=== PATIENT | female | born 1930 | race Caucasian/White ===

== ENCOUNTER 2016-04-21 10:27 | Observation (INO) | payer OTHER ==
[~2016-04-21] VITALS: Ht 162.6 cm; Wt 56.9 kg
[~2016-04-21 10:27] MED LIST: Aricept PO; Dulcolax PO; Dulcolax PR; Duragesic TD; Hydrodiuril,Oretic,E PO; LEXAPRO20 MG PO; LIDODERM 5% P1 PATCH TD; LUNESTA1 MG PO; Lexapro PO; Lipitor PO; Lovenox SC; Maalox, Mylanta PO; Micro-K,K-Tab,K-Dur, PO; Milk Of Magnesia,MOM PO; NAMENDA10 MG PO; NITROSTAT,NITR0.4 M1 SL; Namenda PO; Nitrostat,NitroQuick SL; Protonix PO; QUESTRAN4 GM/PACKE PO; Senokot,Sennagen PO; TOPROL XL100 MG PO; Theragran PO; Toprol XL PO; Tums,OsCal PO; Tylenol Regular Stre PO; Tylenol/Codeine #3 PO; Vitamin D PO; ZOFRAN4 MG PO; Zocor PO
[2016-04-21 11:36] LABS: HEMATOCRIT 35.4 % (36.0-46.0); MCH 26.7 PG (29.0-34.0); MCHC 30.8 G/DL (30.0-36.0); MCV 86.8 FL (83-99); MEAN PLAT.VOLUME 10.4 uM^3 (9.5-12.4); PLATELET COUNT 308 K/uL (156-360); RBC DIS.WIDTH-CV 15.6 % (11.8-14.6); RBC DIS.WIDTH-SD 48.7 % (39-53); RED BLOOD COUNT 4.08 M/uL (3.80-5.20); WHITE BLOOD COUNT 8.1 K/uL (4.1-10.2)
[2016-04-21 11:43] LABS: CHLORIDE 107 mEq/L (99-109); POTASSIUM 3.8 mEq/L (3.7-5.4); SODIUM 143 mEq/L (136-147)
[2016-04-21 11:45] LABS: GLUCOSE 138 mg/dL (70-99)
[2016-04-21 11:46] LABS: ANION GAP 10 MEQ/L (2-14)
[2016-04-21 11:49] LABS: GFR ESTIMATE (CALCULATED) > 59 mL/min/
[2016-04-21 11:50] LABS: UREA NITROGEN (BUN) 19 mg/dL (9-23)
[2016-04-21 11:55] LABS: TROP-I INTERPRETATION NEGATIVE; TROPONIN-I < 0.01 ng/mL (0.0-0.30)
[2016-04-21] MEDS ORDERED: ATORVASTATIN CA20 MG PO (14:56)
[2016-04-21] MEDS ORDERED: METOPROLOL SUCC50 MG PO (14:56)
[2016-04-21] MEDS ORDERED: MEMANTINE HCL10 MG PO (14:56)
[2016-04-21] MEDS ORDERED: DONEPEZIL HCL10 MG PO (14:56)
[2016-04-21] MEDS ORDERED: OMEPRAZOLE40 M1 PO (14:57)
[2016-04-21] MEDS ORDERED: VENLAFAXINE HCL75 M3 PO (14:57)
[2016-04-21] MEDS ORDERED: VITAMIN D-3 401 EACH PO (14:57)
[2016-04-21] MEDS ORDERED: FENTANYL1 EAC5 TD (14:57)
[2016-04-21] MEDS ORDERED: ALEVE PM CAPLE1 EACH PO (14:58)
[2016-04-21] MEDS ORDERED: ICY HOT CREAM35.4 G1 TP (16:24)
[2016-04-21] MEDS ORDERED: VEGETABLE LAXA8.6 MG PO (16:25)
[2016-04-21] MEDS ORDERED: THERAGRAN1 TABLET PO (16:25)
[2016-04-21] MEDS ORDERED: TUMS500 MG PO (16:27)
[2016-04-21 17:16] VITALS: BP 151/65
[2016-04-21 20:30] VITALS: BP 128/62
[2016-04-21 23:51] LABS: ADD MIUA? YES; BILIRUBIN SMALL; BLOOD NEGATIVE; COLOR DK YELLOW ((YELLOW)); GLUCOSE (STRIP) NEGATIVE; KETONES TRACE; LEUKOCYTES TRACE; NITRITE NEGATIVE; PROTEIN (STRIP) 30
[2016-04-22 00:02] LABS: TROP-I INTERPRETATION NEGATIVE; TROPONIN-I < 0.01 ng/mL (0.0-0.30)
[2016-04-22 00:19] LABS: AMORPHOUS PHOSPHATE CRYSTALS 3+; BACTERIA 2+; CASTS PRESENT /LPF; CRYSTALS PRESENT; EPITHELIAL CELLS RARE; HYALINE CASTS 0-5 /LPF; MUCUS 1+; RED BLOOD CELLS NONE SEEN /HPF (0-5); UCUL ADDED? NO; WHITE BLOOD CELLS 0-5 /HPF (0-5)
[2016-04-22 00:24] VITALS: BP 134/63
[2016-04-22 04:41] LABS: HEMATOCRIT 27.6 % (36.0-46.0); MCH 26.8 PG (29.0-34.0); MCHC 30.8 G/DL (30.0-36.0); MCV 87.1 FL (83-99); MEAN PLAT.VOLUME 10.1 uM^3 (9.5-12.4); PLATELET COUNT 230 K/uL (156-360); RBC DIS.WIDTH-CV 15.7 % (11.8-14.6); RBC DIS.WIDTH-SD 48.2 % (39-53); WHITE BLOOD COUNT 5.6 K/uL (4.1-10.2)
[2016-04-22 04:42] LABS: RED BLOOD COUNT 3.17 M/uL (3.80-5.20)
[2016-04-22 04:52] VITALS: BP 174/77
[2016-04-22 04:52] LABS: CHLORIDE 110 mEq/L (99-109); POTASSIUM 3.9 mEq/L (3.7-5.4); SODIUM 143 mEq/L (136-147)
[2016-04-22 04:54] LABS: GLUCOSE 118 mg/dL (70-99)
[2016-04-22 04:55] LABS: ANION GAP 8 MEQ/L (2-14)
[2016-04-22 04:58] LABS: GFR ESTIMATE (CALCULATED) > 59 mL/min/
[2016-04-22 04:59] LABS: UREA NITROGEN (BUN) 22 mg/dL (9-23)
[2016-04-22 05:04] LABS: TROP-I INTERPRETATION NEGATIVE; TROPONIN-I < 0.01 ng/mL (0.0-0.30)
[2016-04-22 08:28] VITALS: BP 128/68
[2016-04-22 10:01] LABS: HEMATOCRIT 29.1 % (36.0-46.0); MCH 26.6 PG (29.0-34.0); MCHC 30.6 G/DL (30.0-36.0); MCV 87.1 FL (83-99); MEAN PLAT.VOLUME 10.9 uM^3 (9.5-12.4); PLATELET COUNT 196 K/uL (156-360); RBC DIS.WIDTH-SD 50.8 % (39-53); RED BLOOD COUNT 3.34 M/uL (3.80-5.20); WHITE BLOOD COUNT 5.7 K/uL (4.1-10.2)
[2016-04-22] MEDS ORDERED: CARDIZEM CD120 MG PO (15:03)
[2016-04-24 08:34] LABS: INTERNAL CONTROL VALID? YES
== END 2016-04-22 16:07 | disposition home or self-care (01) ==
LOC: EME 10:27 → 5WEST 13:43 → EDOF 13:43 → 5WEST 16:56
PROVIDERS: Hospitalist; Internal Medicine; Physician Assistant Medical
DX: I47.1 Supraventricular tachycardia (principal); D64.9 Anemia, unspecified; G30.9 Alzheimer's disease, unspecified; F02.80 Dementia in other diseases classified elsewhere, unspecified severity, without behavioral disturbance, psychotic disturbance, mood disturbance, and anxiety; I10 Essential (primary) hypertension; E78.5 Hyperlipidemia, unspecified; R42 Dizziness and giddiness; K22.4 Dyskinesia of esophagus; F31.9 Bipolar disorder, unspecified; G40.909 Epilepsy, unspecified, not intractable, without status epilepticus; Z88.5 Allergy status to narcotic agent; Z82.49 Family history of ischemic heart disease and other diseases of the circulatory system
CPT/HCPCS: 70450; 71020; 80048; 81003; 82272; 84484; 85027; 93005; 99281; 99285; G0378; J1650

== ENCOUNTER 2016-04-29 10:29 | Observation (INO) | payer OTHER ==
[~2016-04-29] VITALS: Ht 162.6 cm; Wt 58.8 kg
[~2016-04-29 10:29] MED LIST changes: +ALEVE PM CAPLE1 EACH PO; +ATORVASTATIN CA20 MG PO; +CARDIZEM CD120 MG PO; +DONEPEZIL HCL10 MG PO; +FENTANYL1 EAC5 TD; +ICY HOT CREAM35.4 G1 TP; +MEMANTINE HCL10 MG PO; +METOPROLOL SUCC50 MG PO; +OMEPRAZOLE40 M1 PO; +THERAGRAN1 TABLET PO; +TUMS500 MG PO; +VEGETABLE LAXA8.6 MG PO; +VENLAFAXINE HCL75 M3 PO; +VITAMIN D-3 401 EACH PO
[2016-04-29 11:21] LABS: CHLORIDE 104 mEq/L (99-109); SODIUM 138 mEq/L (136-147)
[2016-04-29 11:22] LABS: GLUCOSE 140 mg/dL (70-99)
[2016-04-29 11:24] LABS: ANION GAP 11 MEQ/L (2-14)
[2016-04-29 11:26] LABS: GFR ESTIMATE (CALCULATED) > 59 mL/min/
[2016-04-29 11:27] LABS: UREA NITROGEN (BUN) 16 mg/dL (9-23)
[2016-04-29 11:37] LABS: TROP-I INTERPRETATION NEGATIVE; TROPONIN-I 0.01 ng/mL (0.0-0.30)
[2016-04-29 12:15] LABS: POTASSIUM 4.1 mEq/L (3.7-5.4)
[2016-04-29 13:10] LABS: HEMATOCRIT 34.2 % (36.0-46.0); MCH 26.3 PG (29.0-34.0); MCHC 30.4 G/DL (30.0-36.0); MCV 86.6 FL (83-99); MEAN PLAT.VOLUME 12.3 uM^3 (9.5-12.4); PLATELET COUNT 230 K/uL (156-360); RBC DIS.WIDTH-SD 47.8 % (39-53); RED BLOOD COUNT 3.95 M/uL (3.80-5.20); WHITE BLOOD COUNT 7.4 K/uL (4.1-10.2)
[2016-04-29] MEDS ORDERED: CARDIZEM CD120 MG PO (13:52)
[2016-04-29] MEDS ORDERED: BENADRYL25 MG PO (13:55)
[2016-04-29 15:40] VITALS: BP 133/63
[2016-04-29 15:44] LABS: MAGNESIUM 4.4 mg/dl (1.3-2.7)
[2016-04-29 17:13] VITALS: BP 139/65
[2016-04-29 19:26] VITALS: BP 158/82
[2016-04-30 00:04] VITALS: BP 164/84
[2016-04-30 04:09] VITALS: BP 152/74
[2016-04-30 07:23] LABS: IRON 23 MCG/DL (35-150)
[2016-04-30 07:56] VITALS: BP 120/78
[2016-04-30 08:25] LABS: FERRITIN 40 NG/ML (10-291)
[2016-04-30 12:00] VITALS: BP 128/80
[2016-04-30] MEDS ORDERED: CORDARONE200 MG PO (14:05)
== END 2016-04-30 15:37 | disposition home or self-care (01) ==
LOC: EME 10:29 → EDOF 13:24 → 4EAST 13:24 → EDOF 13:24 → 4EAST 15:33
PROVIDERS: Emergency Medicine; Internal Medicine
DX: I47.1 Supraventricular tachycardia (principal); R94.31 Abnormal electrocardiogram [ECG] [EKG]; I10 Essential (primary) hypertension; E78.5 Hyperlipidemia, unspecified; I35.0 Nonrheumatic aortic (valve) stenosis; G30.9 Alzheimer's disease, unspecified; F02.80 Dementia in other diseases classified elsewhere, unspecified severity, without behavioral disturbance, psychotic disturbance, mood disturbance, and anxiety; D64.9 Anemia, unspecified; R94.6 Abnormal results of thyroid function studies; Z82.49 Family history of ischemic heart disease and other diseases of the circulatory system; Z88.5 Allergy status to narcotic agent
CPT/HCPCS: 71010; 80048; 82607; 82728; 82746; 83540; 83735; 84443; 84450; 84460; 84466; 84484; 84999; 85027; 93005; 93306; 99281; 99285; G0378; J1650; J7030

== ENCOUNTER 2016-05-15 12:07 | Inpatient (IN) | payer OTHER ==
[~2016-05-15] VITALS: Ht 162.6 cm; Wt 63.5 kg
[~2016-05-15 12:07] MED LIST changes: +BENADRYL25 MG PO; +CORDARONE200 MG PO
[2016-05-15 13:35] LABS: CHLORIDE 107 mEq/L (99-109); POTASSIUM 3.7 mEq/L (3.7-5.4); SODIUM 142 mEq/L (136-147)
[2016-05-15 13:36] LABS: EOSINOPHIL (%) 0.4 % (0-5); EOSINOPHIL COUNT 0.1 K/uL (0-0.3); HEMATOCRIT 34.4 % (36.0-46.0); IMMATURE GRANULOCYTE (%) 0.2 % (0.0-0.7); IMMATURE GRANULOCYTE COUNT 0.2 K/uL; LYMPHOCYTE COUNT 1.3 K/uL (1.0-2.8); MCH 25.2 PG (29.0-34.0); MCHC 30.2 G/DL (30.0-36.0); MCV 83.5 FL (83-99); MEAN PLAT.VOLUME 10.9 uM^3 (9.5-12.4); MONOCYTE (%) 7.6 % (3-12); NEUTROPHIL (%) 81.3 % (45-76); NEUTROPHIL COUNT 10.6 K/uL (1.8-6.4); PLATELET COUNT 304 K/uL (156-360); RBC DIS.WIDTH-CV 14.9 % (11.8-14.6); RBC DIS.WIDTH-SD 44.2 % (39-53); RED BLOOD COUNT 4.12 M/uL (3.80-5.20)
[2016-05-15 13:37] LABS: GLUCOSE 145 mg/dL (70-99)
[2016-05-15 13:39] LABS: ANION GAP 12 MEQ/L (2-14); INTER. NORMALIZED RATIO 1.2; PROTHROMBIN TIME 12.7 (9.2-11.2); PTT 27.5 (25-32)
[2016-05-15 13:41] LABS: GFR ESTIMATE (CALCULATED) > 59 mL/min/
[2016-05-15 13:42] LABS: UREA NITROGEN (BUN) 21 mg/dL (9-23)
[2016-05-15 13:48] LABS: TROP-I INTERPRETATION NEGATIVE; TROPONIN-I 0.14 ng/mL (0.0-0.30)
[2016-05-15] MEDS ORDERED: DURAGESIC12 MCG TD (18:56)
[2016-05-15] MEDS ORDERED: ZANTAC150 MG PO (18:58)
[2016-05-15] MEDS ORDERED: CLARITIN,ALAVAR10 MG PO (18:59)
[2016-05-15] MEDS ORDERED: MELATIN3 MG PO (18:59)
[2016-05-15 20:32] VITALS: BP 118/64
[2016-05-15 22:36] LABS: INTER. NORMALIZED RATIO 1.3
[2016-05-15 22:37] LABS: PTT 62.7 (25-32)
[2016-05-15 23:26] VITALS: BP 133/72
[2016-05-16 04:04] VITALS: BP 129/68
[2016-05-16 07:42] VITALS: BP 118/61
[2016-05-16 09:30] LABS: HEMATOCRIT 30.3 % (36.0-46.0); MCH 24.7 PG (29.0-34.0); MCHC 29.7 G/DL (30.0-36.0); MEAN PLAT.VOLUME 10.7 uM^3 (9.5-12.4); PLATELET COUNT 288 K/uL (156-360); RBC DIS.WIDTH-CV 15.1 % (11.8-14.6); RBC DIS.WIDTH-SD 45.9 % (39-53); RED BLOOD COUNT 3.65 M/uL (3.80-5.20); WHITE BLOOD COUNT 9.8 K/uL (4.1-10.2)
[2016-05-16 10:17] LABS: ANION GAP 9 MEQ/L (2-14); CHLORIDE 104 MEQ/L (99-109); GFR ESTIMATE (CALCULATED) > 59 mL/min/; GLUCOSE 143 mg/dL (70-99); POTASSIUM 4.1 MEQ/L (3.7-5.4); SAMPLE HEMOLYSIS CHECK 0; SAMPLE ICTERIC CHECK 0; SAMPLE LIPEMIA CHECK 0; SODIUM 139 MEQ/L (136-147); UREA NITROGEN (BUN) 28 mg/dL (9-23)
[2016-05-16 10:33] LABS: TROP-I INTERPRETATION NEGATIVE; TROPONIN-I 0.22 ng/mL (0.0-0.30)
[2016-05-16 11:41] VITALS: BP 132/79
[2016-05-16 16:00] VITALS: BP 124/74
[2016-05-16 19:23] VITALS: BP 139/71
[2016-05-17 00:13] VITALS: BP 132/69
[2016-05-17 03:28] VITALS: BP 127/75
[2016-05-17 07:00] VITALS: BP 104/56
[2016-05-17 09:41] LABS: HEMATOCRIT 29.6 % (36.0-46.0); MCH 25.1 PG (29.0-34.0); MCHC 29.7 G/DL (30.0-36.0); MCV 84.3 FL (83-99); MEAN PLAT.VOLUME 11.7 uM^3 (9.5-12.4); PLATELET COUNT 313 K/uL (156-360); RBC DIS.WIDTH-CV 15.4 % (11.8-14.6); RED BLOOD COUNT 3.51 M/uL (3.80-5.20); WHITE BLOOD COUNT 10.6 K/uL (4.1-10.2)
[2016-05-17 10:30] LABS: TROP-I INTERPRETATION NEGATIVE; TROPONIN-I 0.12 ng/mL (0.0-0.30)
[2016-05-17 11:09] LABS: ALKALINE PHOSPHATASE 177 IU/L (3-129); ANION GAP 14 MEQ/L (2-14); CHLORIDE 105 MEQ/L (99-109); DIRECT BILIRUBIN 0.3 mg/dL (0.0-0.3); GFR ESTIMATE (CALCULATED) > 59 mL/min/; GLUCOSE 120 mg/dL (70-99); POTASSIUM 4.3 MEQ/L (3.7-5.4); SAMPLE HEMOLYSIS CHECK 0; SAMPLE ICTERIC CHECK 0; SAMPLE LIPEMIA CHECK 0; SODIUM 137 MEQ/L (136-147); TOTAL BILIRUBIN 0.6 MG/DL (0.0-1.0); UREA NITROGEN (BUN) 30 mg/dL (9-23)
[2016-05-17 11:46] LABS: INTER. NORMALIZED RATIO 1.2; PROTHROMBIN TIME 12.7 (9.2-11.2)
[2016-05-17 12:00] VITALS: BP 144/67
[2016-05-17 12:08] LABS: LIPASE 42 U/L (1.0-51.0)
[2016-05-17 16:00] VITALS: BP 161/72
[2016-05-17 20:40] VITALS: BP 133/70
[2016-05-17 22:34] LABS: ANION GAP 10 MEQ/L (2-14); CHLORIDE 107 MEQ/L (99-109); MAGNESIUM 1.7 mg/dl (1.3-2.7); POTASSIUM 4.3 MEQ/L (3.7-5.4); SAMPLE HEMOLYSIS CHECK 0; SAMPLE ICTERIC CHECK 0; SAMPLE LIPEMIA CHECK 0; SODIUM 137 MEQ/L (136-147)
[2016-05-17 22:39] LABS: GFR ESTIMATE (CALCULATED) > 59 mL/min/; GLUCOSE 116 mg/dL (70-99); UREA NITROGEN (BUN) 30 mg/dL (9-23)
[2016-05-18 00:03] VITALS: BP 135/94
[2016-05-18 04:02] VITALS: BP 131/86
[2016-05-18 08:00] VITALS: BP 148/78
[2016-05-18 09:23] LABS: HEMATOCRIT 26.5 % (36.0-46.0); MCH 25.6 PG (29.0-34.0); MCHC 30.6 G/DL (30.0-36.0); MCV 83.9 FL (83-99); MEAN PLAT.VOLUME 11.3 uM^3 (9.5-12.4); PLATELET COUNT 292 K/uL (156-360); RBC DIS.WIDTH-SD 45.9 % (39-53); RED BLOOD COUNT 3.16 M/uL (3.80-5.20); WHITE BLOOD COUNT 11.1 K/uL (4.1-10.2)
[2016-05-18 09:41] LABS: INTER. NORMALIZED RATIO 1.4; PROTHROMBIN TIME 13.9 (9.2-11.2)
[2016-05-18 09:50] LABS: ANION GAP 10 MEQ/L (2-14); CHLORIDE 107 MEQ/L (99-109); GFR ESTIMATE (CALCULATED) > 59 mL/min/; GLUCOSE 110 mg/dL (70-99); POTASSIUM 4.5 MEQ/L (3.7-5.4); SAMPLE HEMOLYSIS CHECK 0; SAMPLE ICTERIC CHECK 0; SAMPLE LIPEMIA CHECK 0; SODIUM 139 MEQ/L (136-147); UREA NITROGEN (BUN) 32 mg/dL (9-23)
[2016-05-18 12:18] VITALS: BP 146/75; BP 150/67
[2016-05-18 16:00] VITALS: BP 143/86
[2016-05-18 19:47] VITALS: BP 139/62
[2016-05-19] VITALS (7 sets, daily range): BP systolic 113–164; BP diastolic 57–72
[2016-05-19 07:13] LABS: INTER. NORMALIZED RATIO 1.5; PROTHROMBIN TIME 15.6 (9.2-11.2); PTT 53.4 (25-32)
[2016-05-19 09:39] LABS: HEMATOCRIT 25.1 % (36.0-46.0); MCH 25.4 PG (29.0-34.0); MCHC 30.3 G/DL (30.0-36.0); MCV 83.9 FL (83-99); MEAN PLAT.VOLUME 12.1 uM^3 (9.5-12.4); PLATELET COUNT 262 K/uL (156-360); RBC DIS.WIDTH-CV 15.3 % (11.8-14.6); RBC DIS.WIDTH-SD 46.4 % (39-53); RED BLOOD COUNT 2.99 M/uL (3.80-5.20); WHITE BLOOD COUNT 9.6 K/uL (4.1-10.2)
[2016-05-19 14:43] LABS: HEMATOCRIT 27.2 % (36.0-46.0); MCHC 29.8 G/DL (30.0-36.0); MEAN PLAT.VOLUME 11.4 uM^3 (9.5-12.4); PLATELET COUNT 311 K/uL (156-360); RBC DIS.WIDTH-CV 15.3 % (11.8-14.6); RBC DIS.WIDTH-SD 46.7 % (39-53); RED BLOOD COUNT 3.24 M/uL (3.80-5.20)
[2016-05-19 14:47] LABS: WHITE BLOOD COUNT 12.5 K/uL (4.1-10.2)
[2016-05-20 04:11] VITALS: BP 144/63
[2016-05-20 05:49] LABS: HEMATOCRIT 27.5 % (36.0-46.0); MCH 25.2 PG (29.0-34.0); MCHC 30.2 G/DL (30.0-36.0); MCV 83.6 FL (83-99); MEAN PLAT.VOLUME 11.4 uM^3 (9.5-12.4); NRBC (%) 0.7 /100 WBC (0-0); PLATELET COUNT 326 K/uL (156-360); RBC DIS.WIDTH-CV 15.5 % (11.8-14.6); RBC DIS.WIDTH-SD 47.2 % (39-53); RED BLOOD COUNT 3.29 M/uL (3.80-5.20); WHITE BLOOD COUNT 15.8 K/uL (4.1-10.2)
[2016-05-20 06:04] LABS: PTT 57.8 (25-32)
[2016-05-20 06:10] LABS: ALKALINE PHOSPHATASE 172 IU/L (3-129); ANION GAP 15 MEQ/L (2-14); CHLORIDE 107 MEQ/L (99-109); GFR ESTIMATE (CALCULATED) > 59 mL/min/; GLUCOSE 140 mg/dL (70-99); POTASSIUM 4.1 MEQ/L (3.7-5.4); SAMPLE HEMOLYSIS CHECK 0; SAMPLE ICTERIC CHECK 0; SAMPLE LIPEMIA CHECK 0; SODIUM 140 MEQ/L (136-147); TOTAL BILIRUBIN 0.6 MG/DL (0.0-1.0); UREA NITROGEN (BUN) 25 mg/dL (9-23)
[2016-05-20 06:16] LABS: DELETE MACHINE DIFF? YES
[2016-05-20 06:17] LABS: INTER. NORMALIZED RATIO 3.4; PROTHROMBIN TIME 35.6 (9.2-11.2)
[2016-05-20 08:27] LABS: ABS NEUTROPHIL COUNT 13.42; ACANTHOCYTES OCC; BURR CELLS RARE; MACROCYTES OCC; OVALOCYTES OCC; PLAT.SUFFICIENCY ADEQUATE; POLYCHROMASIA OCC; USER ID STC
[2016-05-20 08:31] VITALS: BP 171/84
[2016-05-20 11:24] VITALS: BP 165/80
[2016-05-20 12:03] LABS: POC NON-PRINT COM 1 ND
[2016-05-20 15:33] VITALS: BP 154/73
[2016-05-20 19:21] VITALS: BP 145/67
[2016-05-20 23:44] VITALS: BP 138/72
[2016-05-21] VITALS (7 sets, daily range): BP systolic 116–165; BP diastolic 59–80
[2016-05-21 07:29] LABS: INTER. NORMALIZED RATIO 5.3; PROTHROMBIN TIME 56.5 (9.2-11.2)
[2016-05-21 07:41] LABS: HEMATOCRIT 27.7 % (36.0-46.0); MCH 24.7 PG (29.0-34.0); MCV 82.4 FL (83-99); MEAN PLAT.VOLUME 10.9 uM^3 (9.5-12.4); PLATELET COUNT 274 K/uL (156-360); RBC DIS.WIDTH-CV 15.7 % (11.8-14.6); RED BLOOD COUNT 3.36 M/uL (3.80-5.20); WHITE BLOOD COUNT 19.1 K/uL (4.1-10.2)
[2016-05-21 07:56] LABS: ANION GAP 12 MEQ/L (2-14); CHLORIDE 110 MEQ/L (99-109); SAMPLE HEMOLYSIS CHECK 0; SAMPLE ICTERIC CHECK 0; SAMPLE LIPEMIA CHECK 0; SODIUM 145 MEQ/L (136-147)
[2016-05-21 08:01] LABS: GFR ESTIMATE (CALCULATED) > 59 mL/min/; GLUCOSE 144 mg/dL (70-99); UREA NITROGEN (BUN) 24 mg/dL (9-23)
[2016-05-21 08:09] LABS: TROP-I INTERPRETATION NEGATIVE; TROPONIN-I 0.08 ng/mL (0.0-0.30)
[2016-05-21 21:45] LABS: HEMATOCRIT 26.7 % (36.0-46.0); MCV 83.2 FL (83-99)
[2016-05-22 07:30] VITALS: BP 133/73
[2016-05-22 07:35] LABS: EOSINOPHIL (%) 0.5 % (0-5); EOSINOPHIL COUNT 0.1 K/uL (0-0.3); HEMATOCRIT 27.4 % (36.0-46.0); IMMATURE GRANULOCYTE (%) 0.2 % (0.0-0.7); LYMPHOCYTE COUNT 1.4 K/uL (1.0-2.8); MCH 24.5 PG (29.0-34.0); MCHC 29.6 G/DL (30.0-36.0); MEAN PLAT.VOLUME 10.5 uM^3 (9.5-12.4); MONOCYTE (%) 6.8 % (3-12); MONOCYTE COUNT 1.2 K/uL (0-0.8); NEUTROPHIL (%) 84.2 % (45-76); NEUTROPHIL COUNT 14.3 K/uL (1.8-6.4); NRBC (%) 0.6 /100 WBC (0-0); PLATELET COUNT 208 K/uL (156-360); RBC DIS.WIDTH-CV 15.8 % (11.8-14.6); RBC DIS.WIDTH-SD 47.3 % (39-53)
[2016-05-22 07:48] LABS: PTT 32.5 (25-32)
[2016-05-22 07:50] LABS: INTER. NORMALIZED RATIO 1.4; PROTHROMBIN TIME 14.3 (9.2-11.2)
[2016-05-22 08:15] LABS: ALKALINE PHOSPHATASE 150 IU/L (3-129); ANION GAP 5 MEQ/L (2-14); CHLORIDE 109 MEQ/L (99-109); GFR ESTIMATE (CALCULATED) > 59 mL/min/; GLUCOSE 157 mg/dL (70-99); SAMPLE HEMOLYSIS CHECK 0; SAMPLE ICTERIC CHECK 0; SAMPLE LIPEMIA CHECK 0; SODIUM 142 MEQ/L (136-147); TOTAL BILIRUBIN 0.7 MG/DL (0.0-1.0); UREA NITROGEN (BUN) 18 mg/dL (9-23)
[2016-05-22 08:16] LABS: POTASSIUM 3.1 MEQ/L (3.7-5.4)
[2016-05-22 11:41] VITALS: BP 139/63
[2016-05-22 15:10] VITALS: BP 132/63
[2016-05-22 21:40] VITALS: BP 142/65
[2016-05-23 00:50] VITALS: BP 118/58
[2016-05-23 05:41] LABS: MCH 24.9 PG (29.0-34.0); MCV 83.1 FL (83-99); MEAN PLAT.VOLUME 11.9 uM^3 (9.5-12.4); PLATELET COUNT 192 K/uL (156-360); RBC DIS.WIDTH-CV 16.4 % (11.8-14.6); RBC DIS.WIDTH-SD 49.2 % (39-53); RED BLOOD COUNT 3.01 M/uL (3.80-5.20); WHITE BLOOD COUNT 16.8 K/uL (4.1-10.2)
[2016-05-23 05:50] LABS: ANION GAP 7 MEQ/L (2-14); CHLORIDE 111 MEQ/L (99-109); GFR ESTIMATE (CALCULATED) > 59 mL/min/; GLUCOSE 151 mg/dL (70-99); POTASSIUM 3.1 MEQ/L (3.7-5.4); SAMPLE HEMOLYSIS CHECK 0; SAMPLE ICTERIC CHECK 0; SAMPLE LIPEMIA CHECK 0; SODIUM 144 MEQ/L (136-147); UREA NITROGEN (BUN) 14 mg/dL (9-23)
[2016-05-23 05:51] LABS: INTER. NORMALIZED RATIO 1.4; PROTHROMBIN TIME 14.1 (9.2-11.2)
[2016-05-23 07:15] VITALS: BP 172/71
[2016-05-23 11:36] VITALS: BP 133/60
[2016-05-23 16:22] VITALS: BP 132/61
[2016-05-23 19:40] VITALS: BP 139/64
[2016-05-24] VITALS: BP 139/74
[2016-05-24 04:00] VITALS: BP 140/61
[2016-05-24 07:15] LABS: HEMATOCRIT 25.9 % (36.0-46.0); MCH 24.8 PG (29.0-34.0); MCHC 30.1 G/DL (30.0-36.0); MCV 82.5 FL (83-99); MEAN PLAT.VOLUME 12.2 uM^3 (9.5-12.4); PLATELET COUNT 193 K/uL (156-360); RBC DIS.WIDTH-CV 16.4 % (11.8-14.6); RED BLOOD COUNT 3.14 M/uL (3.80-5.20); WHITE BLOOD COUNT 15.5 K/uL (4.1-10.2)
[2016-05-24 07:23] LABS: INTER. NORMALIZED RATIO 1.4; PROTHROMBIN TIME 14.7 (9.2-11.2)
[2016-05-24 07:56] VITALS: BP 130/61
[2016-05-24 07:58] LABS: ANION GAP 8 MEQ/L (2-14); CHLORIDE 111 MEQ/L (99-109); GFR ESTIMATE (CALCULATED) > 59 mL/min/; GLUCOSE 119 mg/dL (70-99); POTASSIUM 3.8 MEQ/L (3.7-5.4); SAMPLE HEMOLYSIS CHECK 0; SAMPLE ICTERIC CHECK 0; SAMPLE LIPEMIA CHECK 0; SODIUM 143 MEQ/L (136-147); UREA NITROGEN (BUN) 11 mg/dL (9-23)
[2016-05-24 12:00] VITALS: BP 128/60
[2016-05-24 15:36] VITALS: BP 117/56
[2016-05-24 20:00] VITALS: BP 137/63
[2016-05-25] VITALS (7 sets, daily range): BP systolic 121–160; BP diastolic 53–84
[2016-05-25 06:36] LABS: HEMATOCRIT 26.3 % (36.0-46.0); MCH 24.8 PG (29.0-34.0); MCHC 30.4 G/DL (30.0-36.0); MCV 81.4 FL (83-99); MEAN PLAT.VOLUME 11.8 uM^3 (9.5-12.4); NRBC (%) 0.5 /100 WBC (0-0); PLATELET COUNT 222 K/uL (156-360); RBC DIS.WIDTH-CV 16.5 % (11.8-14.6); RBC DIS.WIDTH-SD 47.5 % (39-53); RED BLOOD COUNT 3.23 M/uL (3.80-5.20)
[2016-05-25 06:52] LABS: EOSINOPHIL (%) 1.7 % (0-5); EOSINOPHIL COUNT 0.2 K/uL (0-0.3); IMMATURE GRANULOCYTE (%) 0.7 % (0.0-0.7); IMMATURE GRANULOCYTE COUNT 0.1 K/uL; LYMPHOCYTE COUNT 1.4 K/uL (1.0-2.8); MONOCYTE COUNT 1.3 K/uL (0-0.8); NEUTROPHIL (%) 76.9 % (45-76)
[2016-05-25 06:54] LABS: INTER. NORMALIZED RATIO 1.4; PROTHROMBIN TIME 14.9 (9.2-11.2)
[2016-05-25 07:01] LABS: ANION GAP 7 MEQ/L (2-14); CHLORIDE 110 MEQ/L (99-109); GFR ESTIMATE (CALCULATED) > 59 mL/min/; GLUCOSE 114 mg/dL (70-99); POTASSIUM 4.2 MEQ/L (3.7-5.4); SAMPLE HEMOLYSIS CHECK 0; SAMPLE ICTERIC CHECK 0; SAMPLE LIPEMIA CHECK 0; SODIUM 143 MEQ/L (136-147); UREA NITROGEN (BUN) 11 mg/dL (9-23)
[2016-05-26 04:00] VITALS: BP 129/61
[2016-05-26 06:41] LABS: HEMATOCRIT 29.1 % (36.0-46.0); MCH 24.2 PG (29.0-34.0); MCHC 29.2 G/DL (30.0-36.0); MCV 82.9 FL (83-99); MEAN PLAT.VOLUME 11.2 uM^3 (9.5-12.4); PLATELET COUNT 239 K/uL (156-360); RBC DIS.WIDTH-CV 17.3 % (11.8-14.6); RED BLOOD COUNT 3.51 M/uL (3.80-5.20); WHITE BLOOD COUNT 11.4 K/uL (4.1-10.2)
[2016-05-26 06:53] LABS: INTER. NORMALIZED RATIO 1.4; PROTHROMBIN TIME 14.7 (9.2-11.2)
[2016-05-26 07:06] LABS: ANION GAP 7 MEQ/L (2-14); CHLORIDE 107 MEQ/L (99-109); GFR ESTIMATE (CALCULATED) > 59 mL/min/; GLUCOSE 108 mg/dL (70-99); POTASSIUM 4.8 MEQ/L (3.7-5.4); SAMPLE HEMOLYSIS CHECK 0; SAMPLE ICTERIC CHECK 0; SAMPLE LIPEMIA CHECK 0; SODIUM 142 MEQ/L (136-147); UREA NITROGEN (BUN) 10 mg/dL (9-23)
[2016-05-26 08:55] VITALS: BP 169/72
[2016-05-26 11:12] VITALS: BP 159/70
[2016-05-26 16:08] VITALS: BP 131/58
[2016-05-26 23:01] VITALS: BP 118/56
[2016-05-27 06:52] LABS: HEMATOCRIT 27.2 % (36.0-46.0); MCH 25.1 PG (29.0-34.0); MCHC 29.8 G/DL (30.0-36.0); MCV 84.2 FL (83-99); PLATELET COUNT 210 K/uL (156-360); RBC DIS.WIDTH-CV 17.7 % (11.8-14.6); RBC DIS.WIDTH-SD 49.9 % (39-53); RED BLOOD COUNT 3.23 M/uL (3.80-5.20); WHITE BLOOD COUNT 11.3 K/uL (4.1-10.2)
[2016-05-27 07:09] LABS: INTER. NORMALIZED RATIO 1.4; PROTHROMBIN TIME 14.8 (9.2-11.2)
[2016-05-27 07:25] LABS: ANION GAP 5 MEQ/L (2-14); CHLORIDE 108 MEQ/L (99-109); GFR ESTIMATE (CALCULATED) > 59 mL/min/; GLUCOSE 109 mg/dL (70-99); POTASSIUM 5.3 MEQ/L (3.7-5.4); SAMPLE HEMOLYSIS CHECK 0; SAMPLE ICTERIC CHECK 0; SAMPLE LIPEMIA CHECK 0; SODIUM 142 MEQ/L (136-147); UREA NITROGEN (BUN) 10 mg/dL (9-23)
[2016-05-27] MEDS ORDERED: FERROUS SULFAT325 MG PO (13:30)
[2016-05-27] MEDS ORDERED: LOVENOX60 MG/0.6 SC (13:30)
[2016-05-27] MEDS ORDERED: K-DUR20 MEQ PO (13:33)
[2016-05-27] MEDS ORDERED: MAG-OXIDE400 MG PO (13:34)
[2016-05-27] MEDS ORDERED: BISAC-EVAC10 MG PR (13:34)
[2016-05-27] MEDS ORDERED: FENTANYL1 EAC5 TD (13:35)
[2016-05-27] MEDS ORDERED: MORPHINE S10 MG/5 ML PO (13:35)
[2016-05-27] MEDS ORDERED: ANASPAZ0.125 MG PO (13:41)
[2016-05-27] MEDS ORDERED: ATIVAN INTE2 MG/1 ML PO (13:41)
== END 2016-05-27 16:11 | disposition hospice, home (50) | DRG 175 ==
LOC: EME 12:07 → EDOF 16:24 → 5SOUTH 16:24 → 4EAST 16:24 → 5SOUTH 20:15 → 4EAST 05-21 16:20 → 5EAST 05-26 22:40
PROVIDERS: Emergency Medicine; Hospitalist; Internal Medicine; Internal Medicine Hematology & Oncology; Nurse Practitioner Family; Physician Assistant; Student in an Organized Health Care Education/Training Program
DX: I26.99 Other pulmonary embolism without acute cor pulmonale (principal); J96.01 Acute respiratory failure with hypoxia; C78.7 Secondary malignant neoplasm of liver and intrahepatic bile duct; C79.89 Secondary malignant neoplasm of other specified sites; I50.33 Acute on chronic diastolic (congestive) heart failure; I11.0 Hypertensive heart disease with heart failure; I47.1 Supraventricular tachycardia; I48.0 Paroxysmal atrial fibrillation; D50.9 Iron deficiency anemia, unspecified; E87.6 Hypokalemia; G89.3 Neoplasm related pain (acute) (chronic); M54.5 Low back pain; I95.9 Hypotension, unspecified; E78.5 Hyperlipidemia, unspecified; R53.83 Other fatigue; K59.09 Other constipation; T40.2X5A Adverse effect of other opioids, initial encounter; I80.01 Phlebitis and thrombophlebitis of superficial vessels of right lower extremity; G30.9 Alzheimer's disease, unspecified; F02.80 Dementia in other diseases classified elsewhere, unspecified severity, without behavioral disturbance, psychotic disturbance, mood disturbance, and anxiety; Z66 Do not resuscitate; K21.9 Gastro-esophageal reflux disease without esophagitis; F31.9 Bipolar disorder, unspecified; I25.2 Old myocardial infarction; K22.4 Dyskinesia of esophagus; J44.9 Chronic obstructive pulmonary disease, unspecified; I45.10 Unspecified right bundle-branch block; I70.0 Atherosclerosis of aorta; I27.2 Other secondary pulmonary hypertension
CPT/HCPCS: 36415; 70450; 71010; 71275; 74177; 76700; 80048; 80048 91; 80053; 80076; 81003; 82248; 82272; 82378; 82948; 83690; 83735; 83880; 84100; 84132 91; 84484; 85014; 85018; 85025; 85027; 85610; 85730; 86140; 86300 90; 86301 90; 86304; 87040; 87493; 87801; 93005; 93306; 93970; 94760; 94799; 97530 GP; 99281; 99285; C9113; J0153; J1650; J2270; J2405; J3010; J3480; J7030; J7042